=== PATIENT | male | born 1990 | race Caucasian/White ===

== ENCOUNTER 2017-12-05 18:47 | Emergency (ER) | payer SELFPAY ==
[~2017-12-05] VITALS: Ht 182.9 cm; Wt 98.4 kg
[2017-12-05 18:50] VITALS: Ht 182.9 cm; Wt 98.4 kg
[2017-12-05 20:26] VITALS: BP 121/73
== END 2017-12-05 20:26 | disposition home or self-care (01) ==
LOC: ED 18:47
DX: H66.93 Otitis media, unspecified, bilateral (principal)